=== PATIENT | female | born 1995 | race Caucasian/White ===

== ENCOUNTER 2021-06-12 08:21 | Emergency (ER) | payer OTHER, SELFPAY ==
[2021-06-12 08:39] VITALS: BP 97/75; PULSE 97; RESP 16; TEMP 36.4; O2SAT 99
--- NOTE | 2021-06-12 08:56 | ED.URI ---
HPI - URI/Sore Throat General Chief Complaint: Upper Respiratory Infection Stated Complaint: sore throat Time Seen by Provider: 06/12/21 08:56 Source: patient Mode of arrival: ambulatory Limitations: no limitations History of Present Illness HPI Narrative: Ayla Tovar is a 25 yo female with a PMH of depression, anxiety, and hydrodenitis supratevia, who comes to [facility] with a 1 day of sore throat. It started last night she says she woke up this morning and the pain and inability to swallow is unbearable so she came into [facility] Home Medications Medication Instructions Recorded Confirmed Wellbutrin DAILY 06/12/21 adalimumab [Humira] 40 mg SUBCUT ONCE 06/12/21 06/12/21 escitalopram oxalate [Lexapro] 20 mg PO DAILY 06/12/21 06/12/21 spironolactone 100 mg PO DAILY 06/12/21 06/12/21 Allergies Allergy/AdvReac Type Severity Reaction Status Date / Time No Known Allergies Allergy Verified 06/12/21 08:59 Review of Systems Review of Systems: CONSTITUTIONAL: Denies fever, chills, sweats. EYES: Denies visual changes, redness, discharge. ENT: Denies rhinorrhea, congestion, has sore throat, otalgia. Has enlarged lymph node CARDIOVASCULAR: Denies chest pain, palpitations, edema. RESPIRATORY: Denies dyspnea, wheezing, cough GASTROINTESTINAL: Denies abdominal pain, nausea, vomiting, diarrhea. GENITOURINARY: Denies dysuria, hematuria, abnormal discharge SKIN: Denies rash or itching. NEUROLOGIC: Denies numbness, or focal weakness. PSYCHIATRIC: Denies anxiety or depression. PMFSH Past Medical History Medical History Anxiety Depression Hidradenitis suppurativa Family History Family History Other No acute medical problems Social History Social History (Updated 06/12/21 @ 09:08 by Sue Roper CNP) Smoking status: Never smoker Alcohol intake: current Comments At time of signature, I agree with nursing past medical, surgical, social and family history. There is no relevant family history pertinent to the presenting complaint. Exam Narrative: GENERAL: This is a well-nourished, well-developed patient, in mild distress. HEAD: normocephalic, atraumatic. EYES: PERRL. Sclera clear/white. Vision is grossly intact. EARS: External ears normal, auditory canals clear and without drainage, TMs normal without perforation. Hearing grossly intact. NOSE: External nose normal without nasal discharge, nares without redness, no rhinorrhea. THROAT: Mucous membranes moist, posterior pharynx erythema with pus pocket on right NECK: Neck supple, tender enlarged lymph node CARDIOVASCULAR: Regular rate and rhythm without murmurs, gallops, or rubs. RESPIRATORY: Clear to auscultation. Breath sounds equal bilaterally. No wheezes, rales, or rhonchi. GASTROINTESTINAL: Abdomen soft, non-tender, SKIN: warm, intact with no suspicious lesions or rash, good texture and turgor. NEURO: awake, alert, and oriented to person, place and time. There were no obvious focal neurologic abnormalities. Steady gait EXTREMITIES: Normal range of motion. BACK: Nontender without deformity Course Course Emergency Course: Patient here with sore throat is visiting from out of town; started last night Strep test positive Patient started on Medrol Dosepak and amoxicillin Vital Signs Vital signs: Vital Signs Temperature 97.5 F L 06/12/21 08:39 Pulse Rate 97 06/12/21 08:39 Respiratory Rate 16 06/12/21 08:39 Blood Pressure 97/75 L 06/12/21 08:39 Pulse Oximetry 99 06/12/21 08:39 Temperature 97.5 F L 06/12/21 08:39 Pulse Rate 97 06/12/21 08:39 Respiratory Rate 16 06/12/21 08:39 Blood Pressure 97/75 L 06/12/21 08:39 Pulse Oximetry 99 06/12/21 08:39 MDM - URI/Sore Throat Differential Diagnosis Differential diagnosis: Likely upper respiratory infection, sinusitis, viral infection, phary
== END 2021-06-12 09:28 | disposition home or self-care (01) ==
PROVIDERS: Emergency Provider Nurse Practitioner
DX: J02.0 Streptococcal pharyngitis (principal); F41.9 Anxiety disorder, unspecified; F32.9 Major depressive disorder, single episode, unspecified
CPT/HCPCS: 87880; 99203; G0463